=== PATIENT | male | born 1975 | race Caucasian/White ===

== ENCOUNTER 2016-10-10 19:23 | Emergency (ER) | payer OTHER ==
[~2016-10-10] VITALS: Ht 190.5 cm; Wt 135.0 kg
[2016-10-10 19:33] VITALS: BP 148/72
[2016-10-10] MEDS ORDERED: LIDOCAINE 1%, 20ML ONE (20:26)
[2016-10-10] MEDS ORDERED: LIDOCAINE 1%, 20ML SQ ONE (20:30)
== END 2016-10-10 21:11 | disposition home or self-care (01) ==
LOC: ED 21:00
DX: S61.210A Laceration without foreign body of right index finger without damage to nail, initial encounter (principal); W26.0XXA Contact with knife, initial encounter; Y93.89 Activity, other specified; Y92.89 Other specified places as the place of occurrence of the external cause; Y99.8 Other external cause status
CPT/HCPCS: 12001